=== PATIENT | female | born 1955 | race Caucasian/White ===

== ENCOUNTER → 2016-07-31 | Outpatient (CLI) | payer OTHER ==
--- NOTE | 2016-07-31 15:09 | MR ---
MRI of the Right Shoulder History: Shoulder pain. Impingement. M75.41. Technique: Axial proton density, oblique coronal, and sagittal T1 and T2 images were acquired. Findings: Supraspinatus tendon is intact, with mild interstitial tendinosis distally, without tear. I nfraspinatus tendon is also intact, with mild undersurface fraying and tendinosis at the greater tube rosity, without tear. Subscapularis tendon is diseased, with distal tendinosis and tendon thinning at the lesser tuberosity, without full-thickness tear. Moderate features of subcoracoid impingement are noted with hypertrophy of the bicipital tubercle. There is secondary long head biceps tendinosis and peritendinosis, with fluid in the long head biceps tendon sheath and increased T2 signal and fraying of the tendon through the rotator interval. Teres minor is normal. No displaced glenoid labral tear. Mild degenerative intrasubstance signal and fraying of the anterior /superior labrum directly anterior to the biceps anchor. Articular cartilage of the glenohumeral join t is intact. Acromioclavicular joint is mildly degenerative. Impression: 1. Features of subcoracoid impingement, with secondary partial tear of subscapularis and associated l alfredo head biceps tendinosis and peritendinosis. 2. Mild undersurface distal infraspinatus tendinosis, without tear. 3. Acromioclavicular degenerative arthropathy, mild. 4. Degenerative intrasubstance signal and fraying superior glenoid labrum, without linear tear or det achment.
== END ==
LOC: FIMAGING 10:00
PROVIDERS: ATTEND Physician Assistant
DX: M75.41 Impingement syndrome of right shoulder (principal); M24.111 Other articular cartilage disorders, right shoulder

== ENCOUNTER → 2017-09-02 | Outpatient (CLI) | payer MEDICARE, OTHER | LOC: FIMAGING 11:40 | PROVIDERS: ATTEND Family Medicine | DX: Z12.31 Encounter for screening mammogram for malignant neoplasm of breast (principal) ==